=== PATIENT | male | born 1960 | race Caucasian/White ===

== ENCOUNTER 2017-04-11 14:47 | Emergency (ER) | payer OTHER ==
[2017-04-11 14:59] VITALS: RESP 18; TEMP 98.6
--- NOTE | 2017-04-11 15:40 | EDPHY ---
H & P Time Seen by Provider: 04/11/17 15:05 HPI/ROS: CHIEF COMPLAINT: Dog bites History by patient HISTORY OF PRESENT ILLNESS: 57-year-old man presents complaining of multiple bites on bilateral arms and hands which occurred about 2 and 0.5 hr ago when he was trying to break up a fight between his dog and the neighbor's dog. His last tetanus shot was in 2010. He feels that most with a more superficial except for lesion is left hand or his pointer finger nail is involved and his small finger. He also complains of abrasions to both knees were he was kneeling on the gravel trying to break up the fight. He denies any other pain or injury. REVIEW OF SYSTEMS: As in HPI, and all other systems reviewed and are negative Smoking Status: Never smoked Physical Exam: General Appearance: Alert and no distress. Head: Normocephalic, atraumatic Eyes: Pupils equal and round no injection. Extraocular movements are intact. Musculoskeletal: Neck is supple and nontender. Extremities: Right hand:multiple superficial abrasions on fingers dorsum of hand and forearm , distal sensation intact throughout, cap refills less than 2 sec in all fingers , radial, median ulnar nerve intact motor and sensory, full range of motion of all fingers flexion and extension against resistance. Left hand: Multiple people abrasions and bite puncture wounds less than 1 cm, L index finger 1x1 cm v shaped flap on volar just distal to PIP, through skin, deep tissue intact, + nail bed injury across nail; small finger 0.5 cm full thickness puncture wound above mcp joint on dorsal side, 0.5 cm full thickness volar surface just distal to mcp joint, 0.5 cm full thickness distal to pip joint, 0.5 cm wound into nail bed ulnar side of nail, palm 2x0.5 cm full thickness wounds, Full range of motion against resistance with flexion and extension with the exception of index finger where pain and swelling are limiting flexion of the PIP joint, distal cap refills less than 2 sec, distal sensation is intact throughout, radial, median ulnar nerve are intact; positive abrasions on dorsal and volar his forearm surface with some mild swelling and tenderness and ecchymoses on the volar surface but full range of motion of wrist and elbow against resistance Skin: Bilateral superficial abrasions on bilateral knees. No other rashes or lesions except as described above. [ ] Constitutional: Initial Vital Signs Temperature (C) 37.0 C 04/11/17 14:53 Heart Rate 100 04/11/17 14:53 Respiratory Rate 18 04/11/17 14:53 Blood Pressure 122/86 H 04/11/17 14:53 O2 Sat (%) 95 04/11/17 14:53 O2 Delivery Mode Room Air Allergies/Adverse Reactions: No Known Allergies Allergy (Unverified 04/11/17 14:53) Home Medications: Medication Instructions Recorded Amoxicillin/Potassium Clav 1 each PO TID #30 tablet 04/11/17 [Amox-Clav 875-125 mg Tablet] Levothyroxine 04/11/17 Lisinopril 04/11/17 MDM/Departure - MDM Imaging Results: Imaging Impressions Hand X-Ray 04/11/17 17:31 Impression: Minimally displaced fracture of the terminal tuft second finger. Procedures: Procedure: Nail bed reconstruction. Laceration repair: Verbal consent was obtained from the patient. A nail bed laceration was identified on the index finger of the left hand. The finger was anesthetized in the usual fashion with a ring block with 0.25% Marcaine which initially was only minimally successful and then a wing block was performed with additional 0.25% Marcaine good anesthesia. The wound was scrubbed, irrigated with 1.5 L of normal saline by the fire sprinkler service technician, draped and explored. The nail plate was removed and soaked in dilute Betadine. There was a fracture identified below the nail bed on xray. The nail bed was reconstructed with approximation of the lateral nail folds by 5 0 Vicryl interrupted sutures on both sides and the nail bed was repaired with 3 x 6 0 rapidly absorbing gut. The nail bed was splinted open with the patient's own nail secured into place with Dermabond. The procedure was performed by myself. Procedure: Nail bed reconstruction. Laceration repair: Verbal consent was obtained from the patient. A nail bed laceration was identified on the small finger of the left hand. The finger was anesthetized in the usual fashion with a ring block with 0.25% Marcaine. The wound was scrubbed, irrigated with a L of normal saline by the fire sprinkler service technician, draped and. The ulnar upper nail plate was removed to reveal the nail bed laceration. There was no fracture identified below the nail bed. The lateral nail fold was approximated with 2 x 5 0 Vicryl sutures without complication. The procedure was performed by myself. Medications Given: Discontinued Medications Amoxicillin/Clavulanate Potassium (Augmentin 875mg) 1,750 mg PO EDNOW ONE PRN Reason: Protocol Stop: 04/11/17 18:48 Last Admin: 04/11/17 18:56 Dose: 1,750 mg Diphtheria/Tetanus/Acell Pertussis (Boostrix) 0.5 ml IM .ONCE ONE Stop: 04/11/17 16:09 Last Admin: 04/11/17 16:59 Dose: 0.5 ml Ampicillin Sodium/Sulbactam (Sodium 3 gm/ Sodium Chloride) 100 mls @ 200 mls/ hr IV EDNOW ONE PRN Reason: Protocol Stop: 04/11/17 18:29 Last Admin: 04/11/17 18:14 Dose: 100 mls Oxycodone/Acetaminophen (Percocet 5/325mg Prepack#4) 1 btl TAKEHOME EDNOW ONE Stop: 04/11/17 18:50 Last Admin: 04/11/17 18:57 Dose: 1 btl ED Course/Re-evaluation: 57-year-old man presents with multiple abrasions and puncture wounds as well as nail bed injuries and open tuft fracture of his left index finger due to a dog bite. X-ray revealed tuft fracture of the left index finger. Because the open fractures patient is given a dose of IV Unasyn. The nail bed injuries were repaired (see procedure note). Patient will be discharged home with oral Augmentin. I discussed the case with Dr. Herrera historic preservationist for hand surgery who will see the patient in follow-up in 2 days. I discussed signs and symptoms of infection with the patient and return precautions. Patient understands and is agreeable to this plan. - Depart Disposition: Home, Routine, Self-Care Clinical Impression: Dog bite of multiple sites of left hand and fingers Qualifiers: Encounter type: initial encounter Qualified Code(s): S61.452A - Open bite of left hand, initial encounter Open fracture of distal phalanx of left index finger Qualifiers: Encounter type: initial encounter Fracture alignment: nondisplaced Qualified Code(s): S62.661B - Nondisplaced fracture of distal phalanx of left index finger , initial encounter for open fracture Condition: Good Instructions: Oxycodone/Acetaminophen (By mouth), Amoxicillin/Clavulanate Potassium (By mouth), Animal Bite (ED), Finger Fracture (ED) Additional Instructions: You were seen by Dr. Rhonda Morfin today. Wash your wounds with soap and water several times a day and keep covered. Take antibiotics as prescribed. Follow up with the hand surgeon, Dr. Herrera, on Wednesday. Please call tomorrow morning to confirm your appointment. Return for any worsening or new concerns. Prescriptions: Amoxicillin/Potassium Clav [Amox-Clav 875-125 mg Tablet] 1 each PO TID #30 tablet Referrals: Lise Shoemaker [Primary Care Provider] - As per Instructions Neisha Herrera MD [Medical Doctor] - As per Instructions
[2017-04-11] MEDS ORDERED: TDAP ADULT 0.5 ML INJ (BOOSTRIX) IM ONE (16:08)
[2017-04-11] MEDS ORDERED: SKIN ADHESIVE (DERMABOND) 1 EACH TP ONE (17:20)
[2017-04-11] MEDS ORDERED: AMPICILLIN/SULBACTAM 3 GM in NS 100 ML IV ONE (18:00)
[2017-04-11] MEDS ORDERED: AMPICILLIN/SULBACTAM 3 GM VIAL ONE (18:04)
[2017-04-11] MEDS ORDERED: AMOXICILLIN/CLAVULANATE POT 875/125 MG TAB PO ONE (18:47)
[2017-04-11] MEDS ORDERED: OXYCODONE/APAP 5/325MG PREPACK#4 BTL TAKEHOME ONE (18:49)
[2017-04-11 18:56] VITALS: BP 130/86; PULSE 95; O2SAT 98
== END 2017-04-11 19:09 | disposition home or self-care (01) ==
LOC: CED 14:47
PROC: 0HQQXZZ Repair Finger Nail, External Approach (ICD-10-PCS; principal; 2017-04-11)
PROC: 0HQQXZZ Repair Finger Nail, External Approach (ICD-10-PCS; 2017-04-11)
DX: S62.661B Nondisplaced fracture of distal phalanx of left index finger, initial encounter for open fracture (principal); S61.452A Open bite of left hand, initial encounter; Z23 Encounter for immunization; W54.0XXA Bitten by dog, initial encounter
CPT/HCPCS: 73130-PO; 96365; J0295